=== PATIENT | male | born 1990 | race Caucasian/White ===

== ENCOUNTER 2022-02-03 11:10 | Emergency (ER) | payer BC, MEDICAID, OTHER ==
[~2022-02-03] VITALS: Ht 177.8 cm; Wt 84.7 kg
[2022-02-03] MEDS ORDERED: BENA25CA4 PO ×2 (11:20→12:32)
[2022-02-03] MEDS ORDERED: diphenhydrAMINE 50MG CAP PO ONE (12:15)
[2022-02-03] MEDS ORDERED: methylPREDNISolone 125MG 2ML VIAL IM ONE (12:15)
[2022-02-03] MEDS ORDERED: FAMOTIDINE 20 MG TAB PO ONE (12:15)
[2022-02-03] MEDS ORDERED: PRED20TA PO (12:32)
[2022-02-03] MEDS ORDERED: FAMO40TA3 PO (12:32)
[2022-02-03 12:42] VITALS: BP 136/78
== END 2022-02-03 12:45 | disposition home or self-care (01) ==
LOC: M ED 11:10
DX: L25.9 Unspecified contact dermatitis, unspecified cause (principal); T78.40XA Allergy, unspecified, initial encounter
CPT/HCPCS: 96372; 99283; J2930